=== PATIENT | female | born 1960 | race Caucasian/White ===

== ENCOUNTER → 2017-06-23 | Outpatient (CLI) | payer BC ==
--- NOTE | 2017-06-24 07:58 | MAMMOGRAPHY REPORT ---
BILATERAL DIGITAL SCREENING MAMMOGRAM TOMOSYNTHESIS WITH CAD: 06/23/2017 CLINICAL HISTORY: Routine screening examination. TECHNIQUE: Breast tomosynthesis in addition to standard 2D mammography was performed. Current study was also evaluated with a Computer Aided Detection (CAD) system. COMPARISON: Comparison is made to exams dated: 04/13/2013 mammogram, 03/31/2011 mammogram - [facility], 12/14/2008, and 11/02/2006. BREAST COMPOSITION: There are scattered areas of fibroglandular density in both breasts. FINDINGS: No suspicious mass, architectural distortion or cluster of microcalcifications is seen. IMPRESSION: ACR BI-RADS CATEGORY 1: NEGATIVE There is no mammographic evidence of malignancy. A 1 year screening mammogram is recommended. The pa tient will receive written notification of the results. Approximately 10% of breast cancers are not detected with mammography. A negative mammographic report should not delay biopsy if a clinically suggestive mass is present. Mel Morin M.D. ay/:06/23/2017 16:19:50 [employer]: Kayla SHEEHAN(Francis)(M), [facility] letter sent: Normal 1/2 BI-RADS Code: ACR BI-RADS Category 1: Negative
== END | disposition home or self-care (01) ==
LOC: C.MAMM 13:52
PROVIDERS: ATTEND Family Medicine
DX: Z12.31 Encounter for screening mammogram for malignant neoplasm of breast (principal)

== ENCOUNTER 2022-04-22 16:26 | Observation (INO) ==
[2022-04-22] MEDS ORDERED: OPTIRAY 300 500mL IV ONE (16:39)
[2022-04-22 16:59] LABS: Basophils # (auto) 0.03 K/uL (0-0.2); Basophils % (auto) 0.4 %; Eosinophils # (auto) 0.05 K/uL (0-0.50); Eosinophils % (auto) 0.7 %; Hematocrit (blood only) 36.3 % (34.1-44.9); Hemoglobin 12.9 g/dl (12.0-16.0); Immature Granulocytes # (auto) 0.01 K/uL (0.00-0.02); Immature Granulocytes % (auto) 0.1 %; Lymphocytes # (auto) 1.25 K/uL (1.2-3.4); Lymphocytes % (auto) 18.1 %; Mean Corpuscular Hemoglobin 30.8 pg (25.0-34.0); Mean Corpuscular Hgb Conc 35.5 g/dL (32.0-36.0); Mean Corpuscular Volume 86.6 fL (80.0-100.0); Mean Platelet Volume 9.4 fL (9.4-12.3); Monocytes # (auto) 0.47 K/uL (0.24-0.82); Monocytes % (auto) 6.8 %; Neutrophils # (auto) 5.08 K/uL (1.4-6.5); Neutrophils % (auto) 73.9 %; Platelet Count 227 K/uL (130-400); RDW Coefficient of Variation 12.5 % (11.5-14.5); RDW Standard Deviation 39.4 fL (36.4-46.3); Red Blood Count 4.19 M/uL (3.93-5.22); White Blood Count 6.89 K/ul (4.8-10.8)
--- NOTE | 2022-04-22 16:59 | CT Scan Report ---
CT angio head w con, CT angio neck with con, CT head/brain wo con CLINICAL HISTORY: Stroke Like Symptoms . Episode of vision loss and confusion. TECHNIQUE: Contiguous axial CT images of the head were acquired from the base of the skull to the davey briseida without intravenous contrast administration. CT angiography of the head and neck was performed f ollowing intravenous administration of iodinated contrast. Coronal and sagittal MIPS were obtained fr om the axial data set and were submitted for review. Automated dose lowering techniques and/or adjus tment according to patient size were utilized for this examination. All measurements were calculated based on NASCET criteria. CT DOSE: 1165.00 mGy.cm Comparison: None available at the time of this dictation. FINDINGS: CT head: Areas of decreased attenuation are present in the periventricular and subcortical white mohamud er bilaterally consistent with small vessel ischemic disease. Generalized cerebral atrophy with comme nsurate enlargement of the ventricles, sulci, and cisterns is also present. There is no acute intracr anial hemorrhage or evidence of acute territorial infarction. No shift of the midline structures, mas s effect, or extra-axial abnormalities are shown. Atherosclerotic calcifications are present in the intracranial segments of the internal carotid arteries. Lungs and soft tissues are unremarkable. CTA Neck: A 3 vessel aortic arch is shown. There is no significant atherosclerotic plaque in the aor tic arch or the origins of the innominate, left common carotid, and left subclavian arteries. The c ommon carotid, external carotid, cervical segments of the internal carotid arteries, and the cervical segments of the vertebral arteries are patent without hemodynamically significant stenosis. The left vertebral artery is dominant. The right vertebral artery terminates in the cerebellum. CTA Head: The anterior and posterior cerebral circulations are patent. The anterior cerebral arterie s are derived entirely from a dominant right anterior communicating artery, no left anterior communic ating artery is seen. Atherosclerotic disease is noted. IMPRESSION: 1. No acute intracranial hemorrhage, evidence of acute territorial infarction, or other acute intrac ranial disease process. 2. No occlusion, hemodynamically significant stenosis, aneurysm, dissection, or arteriovenous malfor mation in the major intracranial arteries. 3. No occlusion, hemodynamically significant stenosis, or dissection in the major cervical arteries. Assessment of stenosis of the internal carotid arteries is based on NASCET criteria. ACT 112: Negative or not required by law. Electronically signed by: Anthony See M.D. 04/22/2022 4:57 PM
--- NOTE | 2022-04-22 17:03 | Emergency Department Note ---
History of Present Illness General Chief complaint: Visual Disturbance Stated complaint: stroke alert Time Seen by Provider: 04/22/22 16:28 Source: patient Mode of arrival: EMS Limitations: no limitations History of Present Illness Provider complaint: Sudden vision loss This is a 61-year-old female who presents to the emergency department after being referred by ophthalmology for sudden vision loss. Patient states at approximately 1110 this morning she noticed sudden vision loss in the right central vision. States her peripheral vision still seemed intact. She denies any coming headaches, dizziness, difficulty with speech, extremity weakness, or difficulty walking. No recent trauma or change in activity. No recent change in medications. Patient denies recent fevers, chills, or illness. Patient states she does have a history of glaucoma as well as a vitreous hemorrhage. She does follow with ophthalmology routinely. She states she does take medication for high blood pressure, and states she has high cholesterol but does not currently take any medication for it. She denies any daily use of aspirin, Plavix, or other anticoagulation. Patient states she contacted her terra cotta setter and went right to the office for evaluation due to the vision change. While in the office EMS was contacted as they were concerned for stroke and patient was referred here by ophthalmology. Pt seen during a time of high acuity and national emergency pandemic while wearing PPE. Home Medications Medication Instructions Recorded Confirmed Type sertraline 25 mg tablet 75 mg PO DAILY 04/22/22 04/22/22 History valsartan 160 mg tablet 160 mg PO DAILY 04/22/22 04/22/22 History aspirin 81 mg tablet,delayed 81 mg PO DAILY 30 days #30 tabs 04/23/22 Rx release atorvastatin 40 mg tablet 80 mg PO QAM 30 days #60 tabs 04/23/22 Rx clopidogrel 75 mg tablet (Plavix) 75 mg PO DAILY 3 weeks #21 tabs 04/23/22 Rx Allergies Allergy/AdvReac Type Severity Reaction Status Date / Time [id number] AdvReac Unknown Uncoded 04/13/04 02:58 Past Med/Surg History Medical History Hearing loss, left IFG (impaired fasting glucose) Vitreous detachment of left eye Vitreous hemorrhage of left eye Social History Smoking Status: Never smoker Second Hand Exposure: No; Hx Alcohol Use: No Hx Substance Use: No Communication Ability: Effective 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 Beliefs That Will Affect Care: None Current Living Situation: Alone Feels Safe at Home: Yes Assistive Devices: Glasses Review of Systems A total of 10 systems reviewed and were otherwise negative All systems reviewed & are unremarkable except as noted in HPI & below Physical Exam Vital Signs Vital Signs - 24 hr 04/22/22 17:08 04/22/22 19:17 Temperature 37 C Temperature Source Oral Pulse Rate 90 Pulse Rate [Apical] 74 Pulse Rhythm [Apical] Regular Respiratory Rate 20 18 Respiratory Effort / Characteristics Non-Labored Spontaneous Respiratory Depth Normal Respiratory Pattern Regular Blood Pressure 182/97 H Blood Pressure [Left Arm] 145/68 H Blood Pressure Mean 125 Blood Pressure Mean [Left Arm] 93 Blood Pressure Position Sitting Pulse Oximetry 98 99 Oxygen Delivery Method Room Air Room Air Sepsis Recent Fever Within 48 Hours No Sepsis New/Unexplained Change in Mental Status N/A Sepsis Action Taken by Nursing No Action Required GENERAL: alert, well appearing, well nourished, no distress, non-toxic EYE EXAM: normal conjunctiva, PERRL and EOM's grossly intact, no nystagmus, no periorbital edema, patient reports loss of vision in right central/inferior field of vision, peripheral vision intact OROPHARYNX: no exudate, no erythema, lips, buccal mucosa, and tongue normal and mucous membranes are moist NECK: supple, no nuchal rigidity, no adenopathy, non-tender LUNGS: Clear to auscultation. Normal chest wall mechanics, no w/r/r HEART: no murmurs, S1 normal and S2 normal ABDOMEN: abdomen soft, non-tender, normo-active bowel sounds, no masses, no rebound or guarding. BACK: Back is symmetrical on inspection and there is no deformity, no midline tenderness, no CVA tenderness. SKIN: no rashes and no bruising UPPER EXTREMITIES: upper extremities are grossly normal. FROM, nml pulses b/l. LOWER EXTREMITIES: No pitting edema. FROM, nml pulses b/l. NEURO EXAM: Normal sensorium, cranial nerves II-XII grossly intact, normal speech, no gross weakness of arms, no gross weakness of legs. Gross sensation intact. NIHSS 0. Course Course 164: Call placed to patient's terra cotta setter who sent her in here, Dr. Ricci. 1700: No return call from ophthalmology. 1725: Case discussed with Dr. Ricci 1728: Case discussed with Dr. Sauer, [facility]. Administered Medications Discontinued Medications Aspirin (Aspirin 325 Mg Ectab) 325 mg PO NOW STA Stop: 04/22/22 17:17 Last Admin: 04/22/22 17:43 Dose: 325 mg Documented By: JEMIMA Aspirin (Aspirin 81 Mg Ectab) 81 mg PO DAILY RADHAMES Stop: 05/23/22 08:59 Last Admin: 04/23/22 09:38 Dose: 81 mg Documented By: SAM Atorvastatin Calcium (Atorvastatin 40 Mg Tab) 80 mg PO QAM RADHAMES Stop: 05/23/22 08:59 Last Admin: 04/23/22 09:38 Dose: 80 mg Documented By: SAM Enoxaparin Sodium (Enoxaparin Inj 40 Mg/0.4 Ml Syr) 40 mg SQ Q24H RADHAMES Stop: 05/23/22 08:59 Last Admin: 04/23/22 09:38 Dose: 40 mg Documented By: SAM Ioversol (Optiray 300 500ml) 115 ml IV ONCE ONE Stop: 04/22/22 16:40 Last Admin: 04/22/22 16:39 Dose: 115 ml Documented By: FIDENCIO Potassium Chloride (Potassium Chloride Crtab 20 Meq Tabcr) 40 meq PO NOW STA Stop: 04/22/22 18:56 Last Admin: 04/22/22 19:05 Dose: 40 meq Documented By: CJ Sertraline HCl (Sertraline Hcl 50 Mg Tablet) 75 mg PO DAILY RADHAMES Stop: 05/23/22 08:59 Last Admin: 04/23/22 09:38 Dose: 75 mg Documented By: SAM Valsartan (Valsartan 80 Mg Tab) 160 mg PO DAILY RADHAMES Stop: 05/23/22 08:59 Last Admin: 04/23/22 09:38 Dose: 160 mg Documented By: SAM Medical Decision Making Differential Diagnosis Differential Diagnosis includes but is not limited to ischemic Stroke, hemorrhagic stroke, bells palsy, mass, neoplasm, migraine headache, seizure, subarachnoid hemorrhage, TIA, and transient global amnesia. Medical Records Attestation: I reviewed the patient's medical records. Home Medications Current Medication List: was personally reviewed by me Laboratory Data Attestation: I reviewed the patient's lab results. Result diagrams: 04/23/22 07:27 04/23/22 07:27 Lab Results 04/22/22 04/22/22 04/22/22 Range/Units 16:43 16:44 16:44 WBC 6.89 (4.8-10.8) K/ul RBC 4.19 (3.93-5.22) M/uL Hgb 12.9 (12.0-16.0) g/dl Hct 36.3 (34.1-44.9) % MCV 86.6 (80.0-100.0) fL MCH 30.8 (25.0-34.0) pg MCHC 35.5 (32.0-36.0) g/dL RDW Std Deviation 39.4 (36.4-46.3) fL RDW Coeff of Anupama 12.5 (11.5-14.5) % Plt Count 227 (130-400) K/uL MPV 9.4 (9.4-12.3) fL Immature Gran % (Auto) 0.1 % Neut % (Auto) 73.9 % Lymph % (Auto) 18.1 % Walsh % (Auto) 6.8 % Eos % (Auto) 0.7 % Baso % (Auto) 0.4 % Neut # (Auto) 5.08 (1.4-6.5) K/uL Lymph # (Auto) 1.25 (1.2-3.4) K/uL Walsh # (Auto) 0.47 (0.24-0.82) K/uL Eos # (Auto) 0.05 (0-0.50) K/uL Baso # (Auto) 0.03 (0-0.2) K/uL Immature Gran # (Auto) 0.01 (0.00-0.02) K/uL ESR (0-30) mm/hr PT (9.0-12.0) Seconds INR (0.9-1.1) APTT (21.0-31.0) Seconds PTT Ratio Sodium (136-145) mmol/L Potassium (3.5-5.1) mmol/L Chloride (98-107) mmol/L Carbon Dioxide (21-32) mmol/L Anion Gap (3-11) BUN (6-23) mg/dl Creatinine (0.6-1.2) mg/dl Est Cr Clr Drug Dosing ml/min Est GFR ( Amer) ml/min Est GFR (Non-Af Amer) ml/min BUN/Creatinine Ratio (10-20) Glucose (70-99(Fasting)) mg/dl POC Glucose 93 (70-99) mg/dl Estimat Average Glucose mg/dl Hemoglobin A1c (4.5-5.6) % Calcium (8.5-10.1) mg/dl Magnesium (1.7-2.4) mg/dl Total Bilirubin (0.2-1.0) mg/dl AST (13-39) U/L ALT (7-52) U/L Alkaline Phosphatase (34-104) U/L Troponin I High Sens (0-14) pg/ml C-Reactive Protein (0-0.5) mg/dl Total Protein (6.0-8.3) gm/dl Albumin (3.4-5.0) gm/dl Globulin (2.5-4.0) gm/dl Albumin/Globulin Ratio (0.9-2) SARS-CoV-2, RNA, NAAT (NEGATIVE) Blood Type A Negative Antibody Screen NEGATIVE 04/22/22 04/22/22 04/22/22 Range/Units 16:44 16:44 16:44 WBC (4.8-10.8) K/ul RBC (3.93-5.22) M/uL Hgb (12.0-16.0) g/dl Hct (34.1-44.9) % MCV (80.0-100.0) fL MCH (25.0-34.0) pg MCHC (32.0-36.0) g/dL RDW Std Deviation (36.4-46.3) fL RDW Coeff of Anupama (11.5-14.5) % Plt Count (130-400) K/uL MPV (9.4-12.3) fL Immature Gran % (Auto) % Neut % (Auto) % Lymph % (Auto) % Walsh % (Auto) % Eos % (Auto) % Baso % (Auto) % Neut # (Auto) (1.4-6.5) K/uL Lymph # (Auto) (1.2-3.4) K/uL Walsh # (Auto) (0.24-0.82) K/uL Eos # (Auto) (0-0.50) K/uL Baso # (Auto) (0-0.2) K/uL Immature Gran # (Auto) (0.00-0.02) K/uL ESR 12 (0-30) mm/hr PT 11.3 (9.0-12.0) Seconds INR 1.1 (0.9-1.1) APTT 24.9 (21.0-31.0) Seconds PTT Ratio 0.9 Sodium 135 L (136-145) mmol/L Potassium 3.4 L (3.5-5.1) mmol/L Chloride 100 (98-107) mmol/L Carbon Dioxide 27 (21-32) mmol/L Anion Gap 8 (3-11) BUN 13 (6-23) mg/dl Creatinine 0.78 (0.6-1.2) mg/dl Est Cr Clr Drug Dosing 84.0 ml/min Est GFR ( Amer) 95.1 ml/min Est GFR (Non-Af Amer) 82.1 ml/min BUN/Creatinine Ratio 16.7 (10-20) Glucose 86 (70-99(Fasting)) mg/dl POC Glucose (70-99) mg/dl Estimat Average Glucose mg/dl Hemoglobin A1c (4.5-5.6) % Calcium 9.0 (8.5-10.1) mg/dl Magnesium 2.0 (1.7-2.4) mg/dl Total Bilirubin 0.9 (0.2-1.0) mg/dl AST 18 (13-39) U/L ALT 9 (7-52) U/L Alkaline Phosphatase 64 (34-104) U/L Troponin I High Sens 5.2 (0-14) pg/ml C-Reactive Protein < 0.50 (0-0.5) mg/dl Total Protein 7.3 (6.0-8.3) gm/dl Albumin 4.2 (3.4-5.0) gm/dl Globulin 3.1 (2.5-4.0) gm/dl Albumin/Globulin Ratio 1.4 (0.9-2) SARS-CoV-2, RNA, NAAT (NEGATIVE) Blood Type Antibody Screen 04/22/22 04/22/22 Range/Units 16:44 18:38 WBC (4.8-10.8) K/ul RBC (3.93-5.22) M/uL Hgb (12.0-16.0) g/dl Hct (34.1-44.9) % MCV (80.0-100.0) fL MCH (25.0-34.0) pg MCHC (32.0-36.0) g/dL RDW Std Deviation (36.4-46.3) fL RDW Coeff of Anupama (11.5-14.5) % Plt Count (130-400) K/uL MPV (9.4-12.3) fL Immature Gran % (Auto) % Neut % (Auto) % Lymph % (Auto) % Walsh % (Auto) % Eos % (Auto) % Baso % (Auto) % Neut # (Auto) (1.4-6.5) K/uL Lymph # (Auto) (1.2-3.4) K/uL Walsh # (Auto) (0.24-0.82) K/uL Eos # (Auto) (0-0.50) K/uL Baso # (Auto) (0-0.2) K/uL Immature Gran # (Auto) (0.00-0.02) K/uL ESR (0-30) mm/hr PT (9.0-12.0) Seconds INR (0.9-1.1) APTT (21.0-31.0) Seconds PTT Ratio Sodium (136-145) mmol/L Potassium (3.5-5.1) mmol/L Chloride (98-107) mmol/L Carbon Dioxide (21-32) mmol/L Anion Gap (3-11) BUN (6-23) mg/dl Creatinine (0.6-1.2) mg/dl Est Cr Clr Drug Dosing ml/min Est GFR ( Amer) ml/min Est GFR (Non-Af Amer) ml/min BUN/Creatinine Ratio (10-20) Glucose (70-99(Fasting)) mg/dl POC Glucose (70-99) mg/dl Estimat Average Glucose 105 mg/dl Hemoglobin A1c 5.3 (4.5-5.6) % Calcium (8.5-10.1) mg/dl Magnesium (1.7-2.4) mg/dl Total Bilirubin (0.2-1.0) mg/dl AST (13-39) U/L ALT (7-52) U/L Alkaline Phosphatase (34-104) U/L Troponin I High Sens (0-14) pg/ml C-Reactive Protein (0-0.5) mg/dl Total Protein (6.0-8.3) gm/dl Albumin (3.4-5.0) gm/dl Globulin (2.5-4.0) gm/dl Albumin/Globulin Ratio (0.9-2) SARS-CoV-2, RNA, NAAT NEGATIVE (NEGATIVE) Blood Type Antibody Screen Imaging Data Radiologist's Impression: Chest X-Ray 04/22/22 16:22 XR chest 1V portable CLINICAL HISTORY: Stroke Like Symptoms TECHNIQUE: Single frontal radiograph of the chest was obtained. Comparison: None available at the time of this dictation. FINDINGS: No lines and tubes are seen. Cardiomegaly is noted. The lungs are clear. No evidence of pleural effusion or pneumothorax. IMPRESSION: No acute chest disease. Cardiomegaly is noted. ACT 112: Negative or not required by law. Electronically signed by: Anthony See M.D. 04/22/2022 5:[address] 04/22/22 16:22 CT angio head w con, CT angio neck with con, CT head/brain wo con CLINICAL HISTORY: Stroke Like Symptoms . Episode of vision loss and confusion. TECHNIQUE: Contiguous axial CT images of the head were acquired from the base of the skull to the vertex without intravenous contrast administration. CT angiography of the head and neck was performed following intravenous administration of iodinated contrast. Coronal and sagittal MIPS were obtained from the axial data set and were submitted for review. Automated dose lowering techniques and/or adjustment according to patient size were utilized for this examination. All measurements were calculated based on NASCET criteria. CT DOSE: 1165.00 mGy.cm Comparison: None available at the time of this dictation. FINDINGS: CT head: Areas of decreased attenuation are present in the periventricular and subcortical white matter bilaterally consistent with small vessel ischemic disease. Generalized cerebral atrophy with commensurate enlargement of the ventricles, sulci, and cisterns is also present. There is no acute intracranial hemorrhage or evidence of acute territorial infarction. No shift of the midline structures, mass effect, or extra-axial abnormalities are shown. Atherosclerotic calcifications are present in the intracranial segments of the internal carotid arteries. Lungs and soft tissues are unremarkable. CTA Neck: A 3 vessel aortic arch is shown. There is no significant atherosclerotic plaque in the aortic arch or the origins of the innominate, left common carotid, and left subclavian arteries. The common carotid, external carotid, cervical segments of the internal carotid arteries, and the cervical segments of the vertebral arteries are patent without hemodynamically significant stenosis. The left vertebral artery is dominant. The right vertebral artery terminates in the cerebellum. CTA Head: The anterior and posterior cerebral circulations are patent. The anterior cerebral arteries are derived entirely from a dominant right anterior communicating artery, no left anterior communicating artery is seen. Atherosclerotic disease is noted. IMPRESSION: 1. No acute intracranial hemorrhage, evidence of acute territorial infarction, or other acute intracranial disease process. 2. No occlusion, hemodynamically significant stenosis, aneurysm, dissection, or arteriovenous malformation in the major intracranial arteries. 3. No occlusion, hemodynamically significant stenosis, or dissection in the major cervical arteries. Assessment of stenosis of the internal carotid arteries is based on NASCET criteria. ACT 112: Negative or not required by law. Electronically signed by: Anthony See M.D. 04/22/2022 4:57 PM Head CTA 04/22/22 16:22 CT angio head w con, CT angio neck with con, CT head/brain wo con CLINICAL HISTORY: Stroke Like Symptoms . Episode of vision loss and confusion. TECHNIQUE: Contiguous axial CT images of the head were acquired from the base of the skull to the vertex without intravenous contrast administration. CT angiography of the head and neck was performed following intravenous administration of iodinated contrast. Coronal and sagittal MIPS were obtained from the axial data set and were submitted for review. Automated dose lowering techniques and/or adjustment according to patient size were utilized for this examination. All measurements were calculated based on NASCET criteria. CT DOSE: 1165.00 mGy.cm Comparison: None available at the time of this dictation. FINDINGS: CT head: Areas of decreased attenuation are present in the periventricular and subcortical white matter bilaterally consistent with small vessel ischemic disease. Generalized cerebral atrophy with commensurate enlargement of the ventricles, sulci, and cisterns is also present. There is no acute intracranial hemorrhage or evidence of acute territorial infarction. No shift of the midline structures, mass effect, or extra-axial abnormalities are shown. Atherosclerotic calcifications are present in the intracranial segments of the internal carotid arteries. Lungs and soft tissues are unremarkable. CTA Neck: A 3 vessel aortic arch is shown. There is no significant atherosclerotic plaque in the aortic arch or the origins of the innominate, left common carotid, and left subclavian arteries. The common carotid, external carotid, cervical segments of the internal carotid arteries, and the cervical segments of the vertebral arteries are patent without hemodynamically significant stenosis. The left vertebral artery is dominant. The right vertebral artery terminates in the cerebellum. CTA Head: The anterior and posterior cerebral circulations are patent. The anterior cerebral arteries are derived entirely from a dominant right anterior communicating artery, no left anterior communicating artery is seen. Atherosclerotic disease is noted. IMPRESSION: 1. No acute intracranial hemorrhage, evidence of acute territorial infarction, or other acute intracranial disease process. 2. No occlusion, hemodynamically significant stenosis, aneurysm, dissection, or arteriovenous malformation in the major intracranial arteries. 3. No occlusion, hemodynamically significant stenosis, or dissection in the major cervical arteries. Assessment of stenosis of the internal carotid arteries is based on NASCET criteria. ACT 112: Negative or not required by law. Electronically signed by: Anthony See M.D. 04/22/2022 4:57 PM Neck CTA 04/22/22 16:22 CT angio head w con, CT angio neck with con, CT head/brain wo con CLINICAL HISTORY: Stroke Like Symptoms . Episode of vision loss and confusion. TECHNIQUE: Contiguous axial CT images of the head were acquired from the base of the skull to the vertex without intravenous contrast administration. CT angiography of the head and neck was performed following intravenous administration of iodinated contrast. Coronal and sagittal MIPS were obtained from the axial data set and were submitted for review. Automated dose lowering techniques and/or adjustment according to patient size were utilized for this examination. All measurements were calculated based on NASCET criteria. CT DOSE: 1165.00 mGy.cm Comparison: None available at the time of this dictation. FINDINGS: CT head: Areas of decreased attenuation are present in the periventricular and subcortical white matter bilaterally consistent with small vessel ischemic disease. Generalized cerebral atrophy with commensurate enlargement of the ventricles, sulci, and cisterns is also present. There is no acute intracranial hemorrhage or evidence of acute territorial infarction. No shift of the midline structures, mass effect, or extra-axial abnormalities are shown. Atherosclerotic calcifications are present in the intracranial segments of the internal carotid arteries. Lungs and soft tissues are unremarkable. CTA Neck: A 3 vessel aortic arch is shown. There is no significant atherosclerotic plaque in the aortic arch or the origins of the innominate, left common carotid, and left subclavian arteries. The common carotid, external carotid, cervical segments of the internal carotid arteries, and the cervical segments of the vertebral arteries are patent without hemodynamically significant stenosis. The left vertebral artery is dominant. The right vertebral artery terminates in the cerebellum. CTA Head: The anterior and posterior cerebral circulations are patent. The anterior cerebral arteries are derived entirely from a dominant right anterior communicating artery, no left anterior communicating artery is seen. Atherosclerotic disease is noted. IMPRESSION: 1. No acute intracranial hemorrhage, evidence of acute territorial infarction, or other acute intracranial disease process. 2. No occlusion, hemodynamically significant stenosis, aneurysm, dissection, or arteriovenous malformation in the major intracranial arteries. 3. No occlusion, hemodynamically significant stenosis, or dissection in the major cervical arteries. Assessment of stenosis of the internal carotid arteries is based on NASCET criteria. ACT 112: Negative or not required by law. Electronically signed by: Anthony See M.D. 04/22/2022 4:57 PM ECG Data Attestation: I personally reviewed and interpreted this ECG as follows: Indication: + other Rate (beats per minute): 82 Rhythm: + normal sinus ECG Intervals/blocks: + Normal QRS and + Prolonged QT ECG [place]: + Normal ECG ST segments: + Nonspecific ST abnormalities MDM Narrative An order was placed for continuous cardiac monitoring. The monitor shows a rate of __78__ with _normal sinus_ rhythm. THis is a 61 yo female who presents as a stroke alert from the ophthamology office due to abrupt onset vision loss. No accompanying pain. VS stable. Patient went for CT, labs sent. NIHSS 0. Patient not a candidate for TNK or other intervention given location/NIHSS. CAse discussed with tele neurology who agreed and advised starting ASA and other usual stroke evaluation. Patient aware of results and plan. CAse discussed with hospitalist. Impression & Plan Vision loss of right eye, Retinal artery branch occlusion of right eye, Hypertension Discharge Plan Visit Data Chief Complaint: Visual Disturbance Stated Complaint: stroke alert ED Provider: Alisa Osullivan Discharge Problem: Vision loss of right eye, Retinal artery branch occlusion of right eye, Hypertension Patient Disposition: Admitted As Inpatient Condition: Good Discharge Instructions Interventions: ED Discharge Assessment Last Done: 04/22/22 21:00
[2022-04-22 17:13] LABS: INR 1.1 (0.9-1.1); Partial Thromboplastin Ratio 0.9; Partial Thromboplastin Time 24.9 Seconds (21.0-31.0); Prothrombin Time 11.3 Seconds (9.0-12.0)
[2022-04-22] MEDS ORDERED: ASPIRIN 325 MG ECTAB PO STA (17:16)
[2022-04-22 17:28] LABS: Alanine Aminotransferase 9 U/L (7-52); Albumin Globulin Ratio 1.4 (0.9-2); Albumin Level 4.2 gm/dl (3.4-5.0); Alkaline Phosphatase 64 U/L (34-104); Anion Gap 8 (3-11); Aspartate Aminotransferase 18 U/L (13-39); BUN Creatinine Ratio 16.7 (10-20); Bilirubin,Total 0.9 mg/dl (0.2-1.0); Blood Urea Nitrogen 13 mg/dl (6-23); C Reactive Protein < 0.50 mg/dl (0-0.5); Carbon Dioxide 27 mmol/L (21-32); Chloride 100 mmol/L (98-107); Est GFR (African American) 95.1 ml/min; Est GFR (Non-African American) 82.1 ml/min; Globulin 3.1 gm/dl (2.5-4.0); Glucose 86 mg/dl (70-99(Fasting)); Potassium 3.4 mmol/L (3.5-5.1); Sodium 135 mmol/L (136-145); Total Protein 7.3 gm/dl (6.0-8.3)
[2022-04-22 17:31] LABS: Troponin I High Sensitivity 5.2 pg/ml (0-14)
--- NOTE | 2022-04-22 18:14 | History & Physical Report ---
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 TIA considered, continue Central Stroke Work-up - Admit for observation and work-up - Case was reviewed with [facility] (Dr. Sauer) by ED - Patient send by [facility] (Dr. Ricci) - CBC wnl, PT/INR/APTT wnl, hypokalemic (3.4), hyponatremic (135), no transaminitis, normal troponin, normal glucose, normal CRP - EKG, CXR, Head CT,and CTA negative for acute pathology - MRI pending - Echo pending - BMP, CBC, Lipid panel pending in AM - Start Atorvastatin 80 mg in AM - Plan DAPT (Aspirin + Clopidogrel), Aspirin 81 mg received in ED Hypertension - Continue home Valsartan - Encourage optimization of patient's hypertension Hyperlipidemia - Lipid Panel in AM - Plan addition of moderate intensity statin pending AM labs Glaucoma - Follows with Opthalmologist, Dr. Ricci Hypokalemia - Repleted 40 mEq PO OCD/Depression - Continue home Sertraline (2) Hypertension: (3) Hyperlipidemia: (4) Glaucoma: (5) Hypokalemia: (6) Depression: Plan Fluids: None Electrolytes: Hypokalemia, repleted 40 mEq KCl PO Diet: Regular, Fasting Labs in AM DVT Ppx: Lovenox Dispo: Med/Tele History of Present Illness Chief Complaint: Vision Loss in R Eye Primary Care Provider: Jeaneth Panchal MD Ale is a 61 year old female with past medical history of hypertension (on Valsartan 160 mg), glaucoma (w/ vitrous hemorrhage), impaired fasting glucose, hyperlipidemia (untreated), hemorrhoids, interstitial cystitis, hearing loss (left), and obsessive compulsive disorder (on Sertraline 25 mg) who presents for evaluation of visual field loss in her right eye. 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 She had no additional symptoms. Dr. Last suspected retinal branch artery occlusion, but recommended evaluation for central stroke. No arrhythmia, no smoking hx. Patient was hypertensive on presentation. Tele stroke was consulted. She was given Aspirin. A1c was ordered. Fasting lipids were ordered for AM. HPI: Ale notes that she was sitting at home at her desk eating a Monika bar around 11:00 Am when she noted sudden visual loss in her right eye. A mckay/dark spot appeared in the center/inferior portion of her right visual field. After a few moments, patient realized that the vision loss was not going away so she contacted [facility]. [facility] scheduled her with Dr. Ricci. She notes he did not believe this was a retinal detachment. He performed a fluorosine dye test in the office and found an occlusion in the a retinal branch artery of her left eye, which correlated to her visual field loss. Dr. Ricci raised concern for central stroke progression and sent her directly to the ER. At this time, the patient notes that her vision is still abnormal, but it is mildly improved since presentation to the ED. She states that this specific pres entation has never happened to her, but that 11 years ago she experienced a detached vitreous in her left eye with associated vitreous hemorrhage. She states that she is very nearsighted (-8 Right Eye, -7 Left Eye). Patient endorses a mild headache above her right eye and mild discomfort with eye movements bilaterally (onset during evaluation at Opthalmologist). Patient takes Zyoptan eye drops daily for her glaucoma. Patient notes that over the last few months her blood pressure has been elevated at dental apointments and doctors appointments. She states that there are times when she goes from sitting to standing or raises her arms above her head that she can hear her pulse in her ears. Her antihypertensive was recently changed from Losartan to Valsartan 160 mg. She is not monitoring her blood pressures at home. She has notived no difference in symptoms with the medication switch (changed 04/03/22). Patient has not experienced recent headaches. She notes that her lipid levels have been elevated in the past but she is not currently on any medications. She has no personal or family history of silver. Her father as atherosclerotic heart disease 2/2 hyperlipidemia and has had two heart attacks. Patient has never smoked and only uses alcohol occasionally at dinner. Allergies Allergy/AdvReac Type Severity Reaction Status Date / Time [id number] AdvReac Unknown Uncoded 04/13/04 02:58 Home Medications Medication Instructions Recorded Confirmed Type sertraline 25 mg tablet 75 mg PO DAILY 04/22/22 04/22/22 History valsartan 160 mg tablet 160 mg PO DAILY 04/22/22 04/22/22 History aspirin 81 mg tablet,delayed 81 mg PO DAILY 30 days #30 tabs 04/23/22 Rx release atorvastatin 40 mg tablet 80 mg PO QAM 30 days #60 tabs 04/23/22 Rx clopidogrel 75 mg tablet (Plavix) 75 mg PO DAILY 3 weeks #21 tabs 04/23/22 Rx Past Med/Surg History Medical History Hearing loss, left IFG (impaired fasting glucose) Vitreous detachment of left eye Vitreous hemorrhage of left eye Social History Smoking Status: Never smoker Second Hand Exposure: No; Hx Alcohol Use: No Hx Substance Use: No Communication Ability: Effective Instructor Pilot Required: No Beliefs That Will Affect Care: None Current Living Situation: Alone Feels Safe at Home: Yes Assistive Devices: Glasses Review of Systems Review of Systems: Gen: No fevers or fatigue Cardio: No chest pain or palpitations Resp: No dyspnea or pleuritic pain Abd: + Reflux, No nausea, emesis, or abdominal pain. No bowel changes. : No urinary changes Ext: No lower extremity edema Neuro: + Lightheadedness when she stands too quickly, No headaches Physical Exam Physical Exam: Gen: NAD, alert, interactive HEENT: Supple, no LAD, no thyromegaly, no JVD, no carotid bruits - Eye: PERRL (mild residual dilation in R eye s/p cost estimating manager exam), EOMI, endorses visual clarity in left eye, absent vision inferior field in right eye Resp:Non-labored, no wheezing/rhonchi/rales, CTAB CV:RRR, normal S1/S2, no M/R/G Abd: Soft, non-distended, no TTP, normoactive bowels, no masses Extr: 2+ dp bilaterally, no edema Skin: No rashes lesions or erythema Results & Data Results & Data ([facility]) Vital Signs (Past 12 Hours) Vital Signs Temp Pulse Resp BP Pulse Ox O2 Del Method 04/22/22 17:08 37 C 90 20 182/97 H 98 Room Air Diagnostic Findings Chest XR: No acute chest disease. Cardiomegaly is noted. Head/Neck CT: 1. No acute intracranial hemorrhage, evidence of acute territorial infarction, or other acute intracranial disease process. 2. No occlusion, hemodynamically significant stenosis, aneurysm, dissection, or arteriovenous malformation in the major intracranial arteries. 3. No occlusion, hemodynamically significant stenosis, or dissection in the major cervical arteries. ECG Additional Comments: EKG: Normal Sinus Rhythm Code Status & VTE Plan Code Status Full Code Supervising Physician Co-Signing Physician Notes Patient seen and examined, chart reviewed, case discussed with Du Estrella, DO and I agree with the assessment and plan as above except as otherwise noted Labs and images reviewed Alesia is a 61-year-old female with a past medical history of hypertension and depression/anxiety who presented to the ER for acute onset vision loss. History of glaucoma/vitreous hemorrhage and follows with ophthalmology. She does not use any antiplatelets. She had sudden onset of right central vision with intact peripheral vision, had a ophthalmology evaluation and was recommended to go to [facility] ER for stroke evaluation. Per ER: Sent in my Dr. Ricci. Hx of HTN, HLD not treated, and mild glaucoma with past hemmhorage developed at sudden onset R eye vision deficit. Central/lower half of R eye only. No darkening/amurousis. No other neuro deficits. Sent from optho to ER as a stroke alert. Mild HTN. Seemed isolated to eye [facility]: ASA, stroke panel, but suspect retinal artery occlusion. Seen in ER with resident Du Estrella present. Patient with improved but unresolved incomplete inferior mid field cut of the R eye. R eye remains with trace dilation. EoM intact without deficits/nystagmus. Lungs CTAB, HR RRR. Nonsmoker Acute onset vision loss, suspect branch R retinal occlusion Given full dose aspirin in ER CTAnegative: No acute findings CTAhead: No acute findings CThead: No acute findings CXR: No acute findings, cardiomegaly No transaminitis, troponin normal, CRP normal, BSG normal, creatinine normal, hemoglobin normal, leukocytosis Case was discussed with [facility] (Dr. Sauer) and ophthalmology (Dr. Ricci) - Agree with management as above Glaucoma w/ Hx Vitreous Hemmhorage - Follows with optho - No acute management at this time Hypertension Losartan 100 mg p.o. daily Valsartan 160 mg p.o. daily Creatinine normal at baseline, admitting creatinine 0.78 Hypokalemia Potassium 3.4, repleted. Sodium 135, trend Magnesium normal OCD w/ Depression Sertraline 75 mg twice daily Resident Activity Tracking Resident Involvement: Resident Care Provided Care Provided: Adult [facility]
[2022-04-22] MEDS ORDERED: POTASSIUM CHLORIDE CRTAB 20 MEQ TABCR PO STA (18:55)
[2022-04-22] MEDS ORDERED: ACETAMINOPHEN 325 MG TAB PO PRN (22:29)
[2022-04-22] MEDS ORDERED: POLYETHYLENE (MIRALAX) 17 GM PACK PO PRN (22:29)
[2022-04-22] MEDS ORDERED: PHARMACIST DISCHARGE MED REC CONSULT PRN (22:29)
[2022-04-23 07:28] LABS: Estimated Average Glucose 105 mg/dl; Hemoglobin A1C 5.3 % (4.5-5.6)
[2022-04-23 07:54] LABS: Basophils # (auto) 0.04 K/uL (0-0.2); Basophils % (auto) 0.6 %; Eosinophils # (auto) 0.13 K/uL (0-0.50); Eosinophils % (auto) 1.8 %; Hematocrit (blood only) 39.5 % (34.1-44.9); Hemoglobin 13.9 g/dl (12.0-16.0); Immature Granulocytes # (auto) 0.02 K/uL (0.00-0.02); Immature Granulocytes % (auto) 0.3 %; Lymphocytes # (auto) 1.92 K/uL (1.2-3.4); Lymphocytes % (auto) 27.2 %; Mean Corpuscular Hemoglobin 30.3 pg (25.0-34.0); Mean Corpuscular Hgb Conc 35.2 g/dL (32.0-36.0); Mean Corpuscular Volume 86.1 fL (80.0-100.0); Mean Platelet Volume 9.2 fL (9.4-12.3); Monocytes # (auto) 0.77 K/uL (0.24-0.82); Monocytes % (auto) 10.9 %; Neutrophils # (auto) 4.19 K/uL (1.4-6.5); Neutrophils % (auto) 59.2 %; Platelet Count 246 K/uL (130-400); RDW Coefficient of Variation 12.6 % (11.5-14.5); RDW Standard Deviation 39.1 fL (36.4-46.3); Red Blood Count 4.59 M/uL (3.93-5.22); White Blood Count 7.07 K/ul (4.8-10.8)
--- NOTE | 2022-04-23 08:17 | Magnetic Resonance Report ---
MRI OF THE BRAIN WITHOUT IV CONTRAST CLINICAL HISTORY: Episode of right-sided vision loss. Change in mental status. COMPARISON STUDY: CT of the brain dated 04/22/2022. TECHNIQUE: MRI of the brain was performed utilizing various T1 and T2-weighted sequences in the axial , sagittal, and coronal planes. IV contrast was not administered for this examination. FINDINGS: Brain parenchyma: There is age-related involutional change. There are numerous foci of T2 signal abno rmality scattered throughout the subcortical and periventricular white matter. There is no hemorrhage or mass effect. There is no restricted diffusion to suggest acute ischemia. Cosby-white matter differ entiation is preserved. No extra-axial fluid collection is seen. The cerebellar tonsils are normal in configuration. Ventricles, sulci, and cisterns: Prominent secondary to involutional change. Pituitary and sella: Partially empty sella is incidentally noted. Intracranial vasculature: Normal flow voids are maintained at the skull base. Orbits: The bony orbits are grossly intact. Orbital contents are normal in appearance. Sinuses and mastoids: There is trace mucosal thickening within the right maxillary antrum. The remain ing paranasal sinuses and mastoid vessels are clear. Calvarium: Unremarkable. Cervical cord: Partially visualized cervical spinal cord is normal in morphology and signal intensity . IMPRESSION: 1. No acute intracranial abnormality. 2. There are numerous foci of T2 signal abnormality scattered throughout the subcortical and perivent ricular white matter. This likely represents age advanced microangiopathic change. A demyelinating pr ocess could appear similar and clinical correlation will be essential. ACT 112: Negative or not required by law. Electronically signed by: Candido Kellogg M.D. 04/23/2022 8:16 AM
[2022-04-23 08:39] LABS: Calcium 9.8 mg/dl (8.5-10.1); Chol HDL Ratio 6.8 (0-5); Creatinine Clr Calc Pharmacy 69.3 ml/min; Est GFR (African American) 84.5 ml/min; Est GFR (Non-African American) 72.9 ml/min; Magnesium 2.3 mg/dl (1.7-2.4); Potassium 4.1 mmol/L (3.5-5.1)
[2022-04-23] MEDS ORDERED: VALSARTAN 80 MG TAB PO SCH (09:00)
[2022-04-23] MEDS ORDERED: ASPIRIN 81 MG ECTAB PO SCH (09:00)
[2022-04-23] MEDS ORDERED: ATORVASTATIN 40 MG TAB PO SCH (09:00)
[2022-04-23] MEDS ORDERED: ENOXAPARIN INJ 40 MG/0.4 ML SYR SQ SCH (09:00)
[2022-04-23] MEDS ORDERED: SERTRALINE HCL 50 MG TABLET PO SCH (09:00)
--- NOTE | 2022-04-23 09:27 | Electrocardiogram Report ---
Test Reason : Blood Pressure : / mmHG Vent. Rate : 082 BPM Atrial Rate : 082 BPM P-R Int : 176 ms QRS Dur : 072 ms QT Int : 406 ms P-R-T Axes : 070 054 057 degrees QTc Int : 474 ms Poor data quality, interpretation may be adversely affected Normal sinus rhythm Minor Nonspecific ST abnormality Anterolateral leads Abnormal ECG No previous ECGs available Confirmed by Rajan Trinidad ([id number]) on 04/23/2022 9:27:29 AM Referred By: REFERRED SELF Confirmed By:Rajan Trinidad
--- NOTE | 2022-04-23 13:05 | XCELERA ---
[id number]
--- NOTE | 2022-04-23 14:58 | Neurology Consultation ---
Date of Consultation April 23, 2022 Assessment & Plan (1) Vision loss of right eye: (2) Hypertension: (3) Hyperlipidemia: (4) Glaucoma: (5) Depression: (6) Retinal artery branch occlusion of right eye: Plan ASSESSMENT and PLAN: 1. Acute right eye vision loss, painless Impression: The patient had acute right eye central/lower visual loss and was seen by watch leader. Fluorescein angiography was consistent with retinal artery branch occlusion. Recommendations: I do recommend keeping patient on double antiplatelet treatment with aspirin 81 mg and Plavix 75 mg for 3 weeks, then Plavix can be stopped. Risk reduction/secondary stroke prevention by lowering blood pressure below 130/80, lipid-lowering leveling with goal LDL is lower than 70, daily exercise, and healthy diet. The patient is neurologically stable and can be discharged home. The patient has sufficient visual acuity and there is no need for driving restrictions. Follow-up by ophthalmology and neurology. Thanks for the consultation. History of Present Illness Reason for Consultation: Acute vision loss of right eye Requesting Physician: Jeaneth Panchal MD Attending Physician: Jeaneth Panchal MD History of Present Illness The patient is a pleasant, 61-year-old female, who experienced sudden onset, painless, right eye vision loss around 11 AM yesterday. She denies having any additional neurological symptoms including unusual headache, scalp tenderness, sensorimotor deficit, other cranial nerve symptoms, unsteady gait, dizziness, lightheadedness, neck pain, and history of stroke symptoms in the past. She went to [facility], and was seen by Dr. Ricci. Fluorescein angiography revealed evidence of retinal artery branch occlusion in the right eye. This was consistent with the patient's symptoms. There was no reported optic disc swelling, or retinal detachment. The patient was sent to emergency department, for stroke evaluation. Teleneurology was consulted and impression was again retinal artery branch occlusion. The patient was started on aspirin. CT angiogram of head and neck did not show any hemodynamically significant stenosis. Brain MRI was negative for acute or chronic cerebrovascular accident or other intracranial pathology. Laboratory work-up showed elevated serum lipids including LDL, and normal ESR and CRP. Echocardiogram was unremarkable and did not show evidence of patent foramen ovale. The patient has long history of hypertension on valsartan. She has also hyperlipidemia, not on treatment. She has no family history of early age strokes. She denies history of blood clotting, miscarriages, stroke symptoms, jaw claudication, unusual facial or scalp tenderness, anorexia, malaise, or unusual weight loss. Since yesterday, her right eye vision has been improved partially. She can read with the right eye, with slight difficulty. Her peripheral vision has been intact and she has no visual field deficit. Since admission, she has not experienced any new neurological symptoms. I have reviewed the patient's chart including imaging studies and visualized them personally. I have discussed the case with the patient and answered her questions in detail. Allergies Allergy/AdvReac Type Severity Reaction Status Date / Time [id number] AdvReac Unknown Uncoded 04/13/04 02:58 Home Medications Medication Instructions Recorded Confirmed Type losartan 100 mg tablet 100 mg PO DAILY 04/22/22 04/22/22 History sertraline 25 mg tablet 75 mg PO DAILY 04/22/22 04/22/22 History valsartan 160 mg tablet 160 mg PO DAILY 04/22/22 04/22/22 History Patient History Medical History Hearing loss, left IFG (impaired fasting glucose) Vitreous detachment of left eye Vitreous hemorrhage of left eye Social History Smoking Status: Never smoker Second Hand Exposure: No; Do You Dip or Chew Tobacco: No; Hx Alcohol Use: No Hx Substance Use: No Communication Ability: Effective Cow Tender Required: No Beliefs That Will Affect Care: None Current Living Situation: Alone Feels Safe at Home: Yes Assistive Devices: Glasses Review of Systems Review of Systems: All systems reviewed & are unremarkable except as noted in HPI & below Results & Data ([facility]) Vital Signs (Past 12 Hours) Vital Signs Temp Pulse Pulse Pulse Resp BP Pulse Ox 04/23/22 11:18 37.0 C 74 16 132/81 97 04/23/22 08:00 37.1 C 63 18 144/89 H 93 04/23/22 07:30 53 L 04/23/22 04:02 36.8 C 60 18 124/75 97 O2 Del Method 04/23/22 11:18 Room Air 04/23/22 08:00 Room Air 04/23/22 07:30 04/23/22 04:02 Room Air Laboratory Results Laboratory Results - last 24 hr 08/23/22 08/23/22 08/23/22 16:43 16:44 16:44 WBC 6.89 RBC 4.19 Hgb 12.9 Hct 36.3 MCV 86.6 MCH 30.8 MCHC 35.5 RDW Std Deviation 39.4 RDW Coeff of Anupama 12.5 Plt Count 227 MPV 9.4 Immature Gran % (Auto) 0.1 Neut % (Auto) 73.9 Lymph % (Auto) 18.1 [place] % (Auto) 6.8 Eos % (Auto) 0.7 Baso % (Auto) 0.4 Neut # (Auto) 5.08 Lymph # (Auto) 1.25 [place] # (Auto) 0.47 Eos # (Auto) 0.05 Baso # (Auto) 0.03 Immature Gran # (Auto) 0.01 ESR PT INR APTT PTT Ratio Sodium Potassium Chloride Carbon Dioxide Anion Gap BUN Creatinine Est Cr Clr Drug Dosing Est GFR ( Amer) Est GFR (Non-Af Amer) BUN/Creatinine Ratio Glucose POC Glucose 93 Estimat Average Glucose Hemoglobin A1c Calcium Magnesium Total Bilirubin AST ALT Alkaline Phosphatase Troponin I High Sens C-Reactive Protein Total Protein Albumin Globulin Albumin/Globulin Ratio Triglycerides Cholesterol LDL Cholesterol, Calc VLDL Cholesterol, Calc HDL Cholesterol Cholesterol/HDL Ratio SARS-CoV-2, RNA, NAAT Blood Type A Negative Antibody Screen NEGATIVE 04/22/22 04/22/22 04/22/22 16:44 16:44 16:44 WBC RBC Hgb Hct MCV MCH MCHC RDW Std Deviation RDW Coeff of Anupama Plt Count MPV Immature Gran % (Auto) Neut % (Auto) Lymph % (Auto) [place] % (Auto) Eos % (Auto) Baso % (Auto) Neut # (Auto) Lymph # (Auto) [place] # (Auto) Eos # (Auto) Baso # (Auto) Immature Gran # (Auto) ESR 12 PT 11.3 INR 1.1 APTT 24.9 PTT Ratio 0.9 Sodium 135 L Potassium 3.4 L Chloride 100 Carbon Dioxide 27 Anion Gap 8 BUN 13 Creatinine 0.78 Est Cr Clr Drug Dosing 84.0 Est GFR ( Amer) 95.1 Est GFR (Non-Af Amer) 82.1 BUN/Creatinine Ratio 16.7 Glucose 86 POC Glucose Estimat Average Glucose Hemoglobin A1c Calcium 9.0 Magnesium 2.0 Total Bilirubin 0.9 AST 18 ALT 9 Alkaline Phosphatase 64 Troponin I High Sens 5.2 C-Reactive Protein < 0.50 Total Protein 7.3 Albumin 4.2 Globulin 3.1 Albumin/Globulin Ratio 1.4 Triglycerides Cholesterol LDL Cholesterol, Calc VLDL Cholesterol, Calc HDL Cholesterol Cholesterol/HDL Ratio SARS-CoV-2, RNA, NAAT Blood Type Antibody Screen 04/22/22 04/22/22 04/22/22 16:44 18:38 20:06 WBC RBC Hgb Hct MCV MCH MCHC RDW Std Deviation RDW Coeff of Anupama Plt Count MPV Immature Gran % (Auto) Neut % (Auto) Lymph % (Auto) [place] % (Auto) Eos % (Auto) Baso % (Auto) Neut # (Auto) Lymph # (Auto) [place] # (Auto) Eos # (Auto) Baso # (Auto) Immature Gran # (Auto) ESR PT INR APTT PTT Ratio Sodium Potassium Chloride Carbon Dioxide Anion Gap BUN Creatinine Est Cr Clr Drug Dosing Est GFR ( Amer) Est GFR (Non-Af Amer) BUN/Creatinine Ratio Glucose POC Glucose Estimat Average Glucose 105 Hemoglobin A1c 5.3 Calcium Magnesium Total Bilirubin AST ALT Alkaline Phosphatase Troponin I High Sens 6.8 C-Reactive Protein Total Protein Albumin Globulin Albumin/Globulin Ratio Triglycerides Cholesterol LDL Cholesterol, Calc VLDL Cholesterol, Calc HDL Cholesterol Cholesterol/HDL Ratio SARS-CoV-2, RNA, NAAT NEGATIVE Blood Type Antibody Screen 04/23/22 04/23/22 07:27 07:27 WBC 7.07 RBC 4.59 Hgb 13.9 Hct 39.5 MCV 86.1 MCH 30.3 MCHC 35.2 RDW Std Deviation 39.1 RDW Coeff of Anupama 12.6 Plt Count 246 MPV 9.2 L Immature Gran % (Auto) 0.3 Neut % (Auto) 59.2 Lymph % (Auto) 27.2 [place] % (Auto) 10.9 Eos % (Auto) 1.8 Baso % (Auto) 0.6 Neut # (Auto) 4.19 Lymph # (Auto) 1.92 [place] # (Auto) 0.77 Eos # (Auto) 0.13 Baso # (Auto) 0.04 Immature Gran # (Auto) 0.02 ESR PT INR APTT PTT Ratio Sodium 140 Potassium 4.1 D Chloride 103 Carbon Dioxide 32 Anion Gap 5 BUN 12 Creatinine 0.86 Est Cr Clr Drug Dosing 69.3 Est GFR ( Amer) 84.5 Est GFR (Non-Af Amer) 72.9 BUN/Creatinine Ratio 14.0 Glucose 94 POC Glucose Estimat Average Glucose Hemoglobin A1c Calcium 9.8 Magnesium 2.3 Total Bilirubin AST ALT Alkaline Phosphatase Troponin I High Sens C-Reactive Protein Total Protein Albumin Globulin Albumin/Globulin Ratio Triglycerides 176 H Cholesterol 252 H LDL Cholesterol, Calc 180 VLDL Cholesterol, Calc 35 H HDL Cholesterol 37 Cholesterol/HDL Ratio 6.8 H SARS-CoV-2, RNA, NAAT Blood Type Antibody Screen Diagnostic Findings Chest X-Ray 04/22/22 16:22 XR chest 1V portable CLINICAL HISTORY: Stroke Like Symptoms TECHNIQUE: Single frontal radiograph of the chest was obtained. Comparison: None available at the time of this dictation. FINDINGS: No lines and tubes are seen. Cardiomegaly is noted. The lungs are clear. No evidence of pleural effusion or pneumothorax. IMPRESSION: No acute chest disease. Cardiomegaly is noted. ACT 112: Negative or not required by law. Electronically signed by: Anthony See M.D. 04/22/2022 5:[address] 04/22/22 16:22 CT angio head w con, CT angio neck with con, CT head/brain wo con CLINICAL HISTORY: Stroke Like Symptoms . Episode of vision loss and confusion. TECHNIQUE: Contiguous axial CT images of the head were acquired from the base of the skull to the vertex without intravenous contrast administration. CT angiography of the head and neck was performed following intravenous administration of iodinated contrast. Coronal and sagittal MIPS were obtained from the axial data set and were submitted for review. Automated dose lowering techniques and/or adjustment according to patient size were utilized for this examination. All measurements were calculated based on NASCET criteria. CT DOSE: 1165.00 mGy.cm Comparison: None available at the time of this dictation. FINDINGS: CT head: Areas of decreased attenuation are present in the periventricular and subcortical white matter bilaterally consistent with small vessel ischemic disease. Generalized cerebral atrophy with commensurate enlargement of the ventricles, sulci, and cisterns is also present. There is no acute intracranial hemorrhage or evidence of acute territorial infarction. No shift of the midline structures, mass effect, or extra-axial abnormalities are shown. Atherosclerotic calcifications are present in the intracranial segments of the internal carotid arteries. Lungs and soft tissues are unremarkable. CTA Neck: A 3 vessel aortic arch is shown. There is no significant atherosclerotic plaque in the aortic arch or the origins of the innominate, left common carotid, and left subclavian arteries. The common carotid, external carotid, cervical segments of the internal carotid arteries, and the cervical segments of the vertebral arteries are patent without hemodynamically significant stenosis. The left vertebral artery is dominant. The right vertebral artery terminates in the cerebellum. CTA Head: The anterior and posterior cerebral circulations are patent. The anterior cerebral arteries are derived entirely from a dominant right anterior communicating artery, no left anterior communicating artery is seen. Atherosclerotic disease is noted. IMPRESSION: 1. No acute intracranial hemorrhage, evidence of acute territorial infarction, or other acute intracranial disease process. 2. No occlusion, hemodynamically significant stenosis, aneurysm, dissection, or arteriovenous malformation in the major intracranial arteries. 3. No occlusion, hemodynamically significant stenosis, or dissection in the major cervical arteries. Assessment of stenosis of the internal carotid arteries is based on NASCET criteria. ACT 112: Negative or not required by law. Electronically signed by: Anthony See M.D. 04/22/2022 4:57 PM Head CTA 04/22/22 16:22 CT angio head w con, CT angio neck with con, CT head/brain wo con CLINICAL HISTORY: Stroke Like Symptoms . Episode of vision loss and confusion. TECHNIQUE: Contiguous axial CT images of the head were acquired from the base of the skull to the vertex without intravenous contrast administration. CT angiography of the head and neck was performed following intravenous administration of iodinated contrast. Coronal and sagittal MIPS were obtained from the axial data set and were submitted for review. Automated dose lowering techniques and/or adjustment according to patient size were utilized for this examination. All measurements were calculated based on NASCET criteria. CT DOSE: 1165.00 mGy.cm Comparison: None available at the time of this dictation. FINDINGS: CT head: Areas of decreased attenuation are present in the periventricular and subcortical white matter bilaterally consistent with small vessel ischemic d isease. Generalized cerebral atrophy with commensurate enlargement of the ventricles, sulci, and cisterns is also present. There is no acute intracranial hemorrhage or evidence of acute territorial infarction. No shift of the midline structures, mass effect, or extra-axial abnormalities are shown. Atherosclerotic calcifications are present in the intracranial segments of the internal carotid arteries. Lungs and soft tissues are unremarkable. CTA Neck: A 3 vessel aortic arch is shown. There is no significant atherosclerotic plaque in the aortic arch or the origins of the innominate, left common carotid, and left subclavian arteries. The common carotid, external carotid, cervical segments of the internal carotid arteries, and the cervical segments of the vertebral arteries are patent without hemodynamically significant stenosis. The left vertebral artery is dominant. The right vertebral artery terminates in the cerebellum. CTA Head: The anterior and posterior cerebral circulations are patent. The anterior cerebral arteries are derived entirely from a dominant right anterior communicating artery, no left anterior communicating artery is seen. Atherosclerotic disease is noted. IMPRESSION: 1. No acute intracranial hemorrhage, evidence of acute territorial infarction, or other acute intracranial disease process. 2. No occlusion, hemodynamically significant stenosis, aneurysm, dissection, or arteriovenous malformation in the major intracranial arteries. 3. No occlusion, hemodynamically significant stenosis, or dissection in the major cervical arteries. Assessment of stenosis of the internal carotid arteries is based on NASCET criteria. ACT 112: Negative or not required by law. Electronically signed by: Anthony See M.D. 04/22/2022 4:57 PM Neck CTA 04/22/22 16:22 CT angio head w con, CT angio neck with con, CT head/brain wo con CLINICAL HISTORY: Stroke Like Symptoms . Episode of vision loss and confusion. TECHNIQUE: Contiguous axial CT images of the head were acquired from the base of the skull to the vertex without intravenous contrast administration. CT angiography of the head and neck was performed following intravenous administration of iodinated contrast. Coronal and sagittal MIPS were obtained from the axial data set and were submitted for review. Automated dose lowering techniques and/or adjustment according to patient size were utilized for this examination. All measurements were calculated based on NASCET criteria. CT DOSE: 1165.00 mGy.cm Comparison: None available at the time of this dictation. FINDINGS: CT head: Areas of decreased attenuation are present in the periventricular and subcortical white matter bilaterally consistent with small vessel ischemic disease. Generalized cerebral atrophy with commensurate enlargement of the ventricles, sulci, and cisterns is also present. There is no acute intracranial hemorrhage or evidence of acute territorial infarction. No shift of the midline structures, mass effect, or extra-axial abnormalities are shown. Atherosclerotic calcifications are present in the intracranial segments of the internal carotid arteries. Lungs and soft tissues are unremarkable. CTA Neck: A 3 vessel aortic arch is shown. There is no significant atherosclerotic plaque in the aortic arch or the origins of the innominate, left common carotid, and left subclavian arteries. The common carotid, external carotid, cervical segments of the internal carotid arteries, and the cervical segments of the vertebral arteries are patent without hemodynamically significant stenosis. The left vertebral artery is dominant. The right vertebral artery terminates in the cerebellum. CTA Head: The anterior and posterior cerebral circulations are patent. The anterior cerebral arteries are derived entirely from a dominant right anterior communicating artery, no left anterior communicating artery is seen. Atherosclerotic disease is noted. IMPRESSION: 1. No acute intracranial hemorrhage, evidence of acute territorial infarction, or other acute intracranial disease process. 2. No occlusion, hemodynamically significant stenosis, aneurysm, dissection, or arteriovenous malformation in the major intracranial arteries. 3. No occlusion, hemodynamically significant stenosis, or dissection in the major cervical arteries. Assessment of stenosis of the internal carotid arteries is based on NASCET criteria. ACT 112: Negative or not required by law. Electronically signed by: Anthony See M.D. 04/22/2022 4:57 PM Brain MRI 04/22/22 20:26 MRI OF THE BRAIN WITHOUT IV CONTRAST CLINICAL HISTORY: Episode of right-sided vision loss. Change in mental status. COMPARISON STUDY: CT of the brain dated 04/22/2022. TECHNIQUE: MRI of the brain was performed utilizing various T1 and T2-weighted sequences in the axial, sagittal, and coronal planes. IV contrast was not administered for this examination. FINDINGS: Brain parenchyma: There is age-related involutional change. There are numerous foci of T2 signal abnormality scattered throughout the subcortical and periventricular white matter. There is no hemorrhage or mass effect. There is no restricted diffusion to suggest acute ischemia. Cosby-white matter differentiation is preserved. No extra-axial fluid collection is seen. The cerebellar tonsils are normal in configuration. Ventricles, sulci, and cisterns: Prominent secondary to involutional change. Pituitary and sella: Partially empty sella is incidentally noted. Intracranial vasculature: Normal flow voids are maintained at the skull base. Orbits: The bony orbits are grossly intact. Orbital contents are normal in appearance. Sinuses and mastoids: There is trace mucosal thickening within the right maxillary antrum. The remaining paranasal sinuses and mastoid vessels are clear. Calvarium: Unremarkable. Cervical cord: Partially visualized cervical spinal cord is normal in morphology and signal intensity. IMPRESSION: 1. No acute intracranial abnormality. 2. There are numerous foci of T2 signal abnormality scattered throughout the subcortical and periventricular white matter. This likely represents age advanced microangiopathic change. A demyelinating process could appear similar and clinical correlation will be essential. ACT 112: Negative or not required by law. Electronically signed by: Candido Kellogg M.D. 04/23/2022 8:16 AM
[2022-04-23] MEDS ORDERED: STROKE PATIENT DISCHARGE STA (17:44)
--- NOTE | 2022-04-23 17:59 | Discharge Summary ---
Date of Service April 23, 2022 Admission HPI Per Admitting Provider Ale is a 61 year old female with past medical history of hypertension (on Valsartan 160 mg), glaucoma (w/ vitrous hemorrhage), impaired fasting glucose, hyperlipidemia (untreated), hemorrhoids, interstitial cystitis, hearing loss (left), and obsessive compulsive disorder (on Sertraline 25 mg) who presents for evaluation of visual field loss in her right eye. 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 She had no additional symptoms. Dr. Last suspected retinal branch artery occlusion, but recommended evaluation for central stroke. No arrhythmia, no smoking hx. Patient was hypertensive on presentation. Tele stroke was consulted. She was given Aspirin. A1c was ordered. Fasting lipids were ordered for AM. HPI: Ale notes that she was sitting at home at her desk eating a Monika bar around 11:00 Am when she noted sudden visual loss in her right eye. A mckay/dark spot appeared in the center/inferior portion of her right visual field. After a few moments, patient realized that the vision loss was not going away so she contacted [facility]. [facility] scheduled her with Dr. Ricci. She notes he did not believe this was a retinal detachment. He performed a fluorosine dye test in the office and found an occlusion in the a retinal branch artery of her left eye, which correlated to her visual field loss. Dr. Ricci raised concern for central stroke progression and sent her directly to the ER. At this time, the patient notes that her vision is still abnormal, but it is mildly improved since presentation to the ED. She states that this specific pres entation has never happened to her, but that 11 years ago she experienced a detached vitreous in her left eye with associated vitreous hemorrhage. She states that she is very nearsighted (-8 Right Eye, -7 Left Eye). Patient endorses a mild headache above her right eye and mild discomfort with eye movements bilaterally (onset during evaluation at Opthalmologist). Patient takes Zyoptan eye drops daily for her glaucoma. Patient notes that over the last few months her blood pressure has been elevated at dental apointments and doctors appointments. She states that there are times when she goes from sitting to standing or raises her arms above her head that she can hear her pulse in her ears. Her antihypertensive was recently changed from Losartan to Valsartan 160 mg. She is not monitoring her blood pressures at home. She has notived no difference in symptoms with the medication switch (changed 04/03/22). Patient has not experienced recent headaches. She notes that her lipid levels have been elevated in the past but she is not currently on any medications. She has no personal or family history of silver. Her father as atherosclerotic heart disease 2/2 hyperlipidemia and has had two heart attacks. Patient has never smoked and only uses alcohol occasionally at dinner. Principal Diagnosis Vision loss of right eye Discharge Exam Eyes PERLL Respiratory CTA bilaterally, no rhonchi, wheezing, or rales. No increased work of breathing. Cardiovascular RRR. No murmur noted. Neurologic 5/5 strength in upper and lower extremities. No FND. No sensation deficits. Speech intact and articulated well. Discharge Data Allergies Allergy/AdvReac Type Severity Reaction Status Date / Time [id number] AdvReac Unknown Uncoded 04/13/04 02:58 Consultations 04/22/22 18:40 ED Decision to Admit Stat 04/23/22 11:32 Consult Neurology Routine - I do recommend keeping patient on double antiplatelet treatment with aspirin 81 mg and Plavix 75 mg for 3 weeks, then Plavix can be stopped. Risk reduction/secondary stroke prevention by lowering blood pressure below 130/80, lipid-lowering leveling with goal LDL is lower than 70, daily exercise, and healthy diet. The patient is neurologically stable and can be discharged home. The patient has sufficient visual acuity and there is no need for driving restrictions. Follow-up by ophthalmology and neurology. Ordered Studies 04/22/22 16:22 CT angio head w con Stat CT angio neck with con Stat CT head/brain wo con Stat 04/22/22 20:26 MRI Brain [MR brain wo con] Urgent Hospital Course (1) Vision loss of right eye: Vision Loss in Right Eye - Patient sent to the ER by [facility] (Dr. Ricci) - CBC wnl, PT/INR/APTT wnl, hypokalemic (3.4), hyponatremic (135), no transaminitis, normal troponin, normal glucose, normal CRP - EKG, CXR, Head CT,and CTA negative for acute pathology - Central stroke vs. TIA considered - Case was reviewed with [facility] (Dr. Sauer) by ED - Aspirin 81 mg received in ED - MRI negative for acute pathology, subcortical and periventricular findings most likely related to microangiopathic change (or demyelinating disorder- unlikely with this presentation) - Echo negative. No valvular disease. EF 60-65% - Seen by neurology - Started Atorvastatin 80 mg - Plan DAPT (Aspirin + Clopidogrel), - to continue aspirin 81 mg and clopidogrel 75 mg at home (stop clopidogrel after 3 weeks) - pt to f/u with neurology and ophthalmology outpatient Hypertension - Continue home Valsartan - Encourage optimization of patient's hypertension Hyperlipidemia - lipid panel showed high total cholesterol and triglycerides - began atorvastatin 80 mg - to continue this medication at home Glaucoma - Follows with Opthalmologist, Dr. Ricci Hypokalemia - Repleted 40 mEq PO - Repeat potassium 4.1 OCD/Depression - Continue home Sertraline (2) Hypertension: (3) Hyperlipidemia: (4) Glaucoma: (5) Hypokalemia: (6) Depression: Plan Fluids: None Electrolytes: Hypokalemia, repleted 40 mEq KCl PO Diet: Regular, Fasting Labs in AM DVT Ppx: Lovenox Dispo: Med/Tele Total Time Total Time Spent Total Time Spent (In Minutes): As per attending attestation Discharge Plan Discharge Items Patient Disposition: Home - Self-Care Reason For Visit: ACUTE VISION LOSS, CVA EVAL Discharge Diagnosis: Right central retinal artery branch occlusion Activity: Per Instructions section Non-emergency contact: Primary Care Provider, Neurologist and [facility] Call non-emergency contact if: you have any medication questions and your symptoms worsen Follow-up/Referrals: Jeaneth Panchal MD [Primary Care Provider] - Diet: Heart Healthy Addtl Attending Provider Instructions: You were admitted to [facility] due to sudden right eye vision loss. You had studies done to exclude a stroke as a cause of your symptoms. CTs of your head and neck did not show any significant artery occlusions or signs of stroke. A brain MRI confirmed no stroke findings as well. You did have elevations in cholesterol but had normal hemoglobin A1c excluding diabetes. Neurology evaluated you and recommended starting medication for cholesterol, as well as to antiplatelet medications to decrease the risk of clotting and future strokes. We have sent these medications to your pharmacy please take them as follows: Aspirin 81 mg by mouth daily Atorvastatin 80 mg by mouth daily Clopidogrel 75 mg by mouth daily for 3 weeks, then you can stop this medication You should continue to take all your other previously prescribed medications as recommended. You should monitor your blood pressure at home with goal to keep it below 130/80. As you demonstrated sufficient visual acuity, there is no need for driving restrictions. It is recommended that you follow-up with ophthalmology, neurology, and your PCP. We will schedule you for a PCP appointment and contact you with further information. Please reach out to ophthalmology and neurology to get scheduled. If you develop any severe or new concerning symptoms, please return to the hospital or call 911. Pending Studies at Discharge: No Stand-Alone Forms: [facility], Smoking Cessation Medications and DC Order Prescriptions: New atorvastatin 40 mg Tablet 80 mg PO QAM 30 Days Qty: 60 0RF aspirin 81 mg Tablet,Delayed Release (Dr/Ec) 81 mg PO DAILY 30 Days Qty: 30 0RF clopidogrel [Plavix] 75 mg tablet 75 mg PO DAILY 21 Days Qty: 21 0RF Continued sertraline 25 mg tablet 75 mg PO DAILY valsartan 160 mg tablet 160 mg PO DAILY Discontinued losartan 100 mg tablet 100 mg PO DAILY Discharge Orders: Discharge Order (Routine); Ordered 04/23/22 Ordered By: Joel ChenRicardo Admission Data Admit Date/Time: 04/22/22 18:44 Attending Provider: Jeaneth Panchal Admit Provider: Tony Wu Primary Care Provider: Jeaneth Panchal Other Providers: Tony Wu ; Nain Rogers ; Michael Valenzuela ; Rox Johnson ; Shakira Pierre ; Dago Dominguez Kathleen ; David Tilley ; Nereida Stacy ; Gabo Moss ; Salome Schaefer ; Sridevi New ; Michelle Macias Other Interventions: Discharge Summary Assessment (RN) Last Done: 04/23/22 17:52 Supervising Physician Co-Signing Physician Notes Resident Physician Supervision Note: I independently interviewed and examined the patient and verified the smith history and physical, reviewed labs and image studies and agree with resident Dr. Wagoner findings and care plan. Resident Activity Tracking Resident Involvement: Resident Care Provided Care Provided: Adult [facility]
== END 2022-04-23 19:03 | disposition home or self-care (01) ==
LOC: 2N 16:26 → ED 16:26 → SUATTDRO 18:44 → 2N 21:00